=== PATIENT | female | born 1995 | race Caucasian/White ===

== ENCOUNTER → 2023-12-20 08:48 | Outpatient (CLI) | payer OTHER, SELFPAY ==
[2023-12-20 09:49] LABS: Add Manual Diff / Slide Review NO; Basophils Absolute Auto 0 /uL (0-100); Basophils Percent Auto 0.2 % (0-2); Eosinophils Absolute Auto 100 /uL (0-450); Eosinophils Percent Auto 1.8 % (2-4); Hematocrit 44.4 % (36-46); Hemoglobin 15.2 g/dL (12.0-16.0); Lymphocytes Absolute Auto 1600 /uL (1100-4500); Lymphocytes Percent Auto 29.4 % (25-40); Mean Corpuscular HGB Conc 34.3 % (30-36); Mean Corpuscular Hemoglobin 30.5 PG (26-34); Mean Corpuscular Volume 89.1 fL (80-100); Monocytes Absolute Auto 400 /uL (0-900); Monocytes Percent Auto 8.1 % (3-14); Neutrophils Absolute Auto 3300 /uL (1500-7000); Neutrophils Percent Auto 60.5 % (50-75); Platelet Count 258 X10^3/uL (150-400); Red Blood Cell Count 4.99 X10^6/uL (4.0-5.2); Red Cell Distribution Width 12.8 % (11.6-14.8); White Blood Cell Count 5.4 X10^3/uL (4.5-11.0)
[2023-12-20 10:12] LABS: Alanine Aminotransferase 49 IU/L (<35); Albumin 4.5 g/dL (3.5-5.0); Albumin Globulin Ratio 1.6 (1.0-2.8); Alkaline Phosphatase 64 U/L (38-126); Aspartate Aminotransferase 36 IU/L (14-36); BUN Creatinine Ratio 22.5 (6-22); Blood Urea Nitrogen 16 mg/dL (7-17); Calcium 9.1 mg/dL (8.4-10.2); Carbon Dioxide 26 mmol/L (22-32); Chloride 106 mmol/L (98-107); Estimated Glomerular Filt Rate > 60 mL/min (>60); Globulin 2.8 g/dL (1.7-4.1); Glucose 88 mg/dL (70-100); HEMOLYSIS < 15 (0-50); Potassium 4.5 mmol/L (3.4-5.1); Sodium 139 mmol/L (137-145); Total Protein 7.3 g/dL (6.3-8.2)
[2023-12-20 10:32] LABS: TSH w/ Reflex to FT4 2.25 uIU/mL (0.47-4.68)
== END ==
PROVIDERS: PCP Family Medicine; Referring Provider Family Medicine; Visit Provider Family Medicine
DX: Z31.430 Encounter of female for testing for genetic disease carrier status for procreative management (principal); Z30.09 Encounter for other general counseling and advice on contraception; E03.9 Hypothyroidism, unspecified
CPT/HCPCS: 36415; 80053; 84443; 85025

== ENCOUNTER → 2024-01-20 09:43 | Outpatient (CLI) | payer OTHER, SELFPAY ==
[2024-01-20 10:54] LABS: Appearance Urine UA CLEAR; Bilirubin Urine UA NEGATIVE (NEGATIVE); Color Urine UA YELLOW; Glucose Urine UA NEGATIVE (Negative); Ketones Urine UA NEGATIVE (NEGATIVE); Leukocyte Esterase Urine UA NEGATIVE (NEGATIVE); Nitrite Urine UA NEGATIVE (Negative); Occult Blood Urine UA NEGATIVE (Negative); Protein Urine UA NEGATIVE (Negative); Urobilinogen Urine UA 0.2 E.U./dL (0.2)
[2024-01-20 10:57] LABS: pH Urine UA 6.5 (4.5-8.0)
[2024-01-20 11:09] LABS: HEMOLYSIS < 15 (0-50); Iron 108 ug/dL (37-170)
[2024-01-20 11:11] LABS: Alanine Aminotransferase 40 IU/L (<35); Albumin 4.4 g/dL (3.5-5.0); Albumin Globulin Ratio 1.8 (1.0-2.8); Alkaline Phosphatase 64 U/L (38-126); Aspartate Aminotransferase 28 IU/L (14-36); BUN Creatinine Ratio 19.4 (6-22); Blood Urea Nitrogen 14 mg/dL (7-17); Calcium 9.2 mg/dL (8.4-10.2); Carbon Dioxide 27 mmol/L (22-32); Chloride 106 mmol/L (98-107); Estimated Glomerular Filt Rate > 60 mL/min (>60); Globulin 2.4 g/dL (1.7-4.1); Glucose 84 mg/dL (70-100); HEMOLYSIS < 15 (0-50); Potassium 4.7 mmol/L (3.4-5.1); Sodium 139 mmol/L (137-145); Total Protein 6.8 g/dL (6.3-8.2)
[2024-01-20 11:17] LABS: Bacteria Urine None Seen; Culture Indicated Urine Cult Not Indicated; RBC Urine None Seen (0-5/HPF); Squamous Epithelial Cell Urine None Seen (0-5/HPF); Urine Volume 10mL (spun); WBC Urine None Seen (0-5/HPF)
[2024-01-20 11:20] LABS: Percent Iron Saturation 30 % (15-50); Total Iron Binding Capacity 359 ug/dL (265-497); Transferrin 286 mg/dL (206-381)
[2024-01-20 11:46] LABS: Ferritin 31 ng/mL (6-137)
[2024-01-20 12:31] LABS: Hemoglobin A1C% w Est Avg Glu 4.9 % (4.0-6.0)
[2024-01-21 05:13] LABS: HBsAg Screen Negative (Negative); Hepatitis A Antibody IgM Negative (Negative); Hepatitis B Core Antibody IgM Negative (Negative); Hepatitis C Antibody Non Reactive (Non Reactive)
== END ==
PROVIDERS: PCP Family Medicine; Referring Provider Family Medicine; Visit Provider Family Medicine
DX: R35.0 Frequency of micturition (principal); R79.89 Other specified abnormal findings of blood chemistry; F31.74 Bipolar disorder, in full remission, most recent episode manic; E03.9 Hypothyroidism, unspecified
CPT/HCPCS: 36415; 80053; 80074; 81001; 82728; 83036; 83540; 83550

== ENCOUNTER → 2024-01-24 15:24 | Outpatient (CLI) | payer OTHER, SELFPAY ==
--- NOTE | 2024-01-24 15:26 | DI.US.S_ITS ---
PROCEDURE: US ABDOMEN COMPLETE INDICATIONS: ELEVATED LFT's/URINARY FREQUENCY TECHNIQUE: Real-time scanning was performed of the abdominal and retroperitoneal organs, with image documentation. COMPARISON: None. FINDINGS: Liver: Liver is normal in size and homogeneous in echotexture. Gallbladder: Normal. Biliary ducts: Intrahepatic bile ducts are non-dilated. Extrahepatic bile duct caliber measures 2.5 mm. Normal is 6-7 mm or less in diameter, or 10 mm or less post-cholecystectomy. Pancreas: Visualized portions of the pancreas are sonographically normal. Spleen: Spleen is normal in size and homogeneous in echotexture. Kidneys: Kidneys are normal in size and echotexture. Right kidney measures 10.8 cm long; left kidney measures 12.3 cm long. No hydronephrosis or nephrolithiasis. No solid masses. Aorta: Visualized aorta is normal in caliber at less than 3 cm. Iliacs: Proximal common iliac arteries are normal in caliber at less than 2.5 cm. IVC: Intrahepatic inferior vena cava is patent. Miscellaneous: No free abdominal fluid. IMPRESSION: No findings to explain the patient's elevated LFTs. Normal liver echogenicity. No gallbladder pathology. Dictated by: Prakash Moon M.D. on 01/24/2024 at 18:39 Approved by: Prakash Moon M.D. on 01/24/2024 at 18:40
== END ==
PROVIDERS: PCP Family Medicine; Referring Provider Family Medicine; Visit Provider Family Medicine
DX: R79.89 Other specified abnormal findings of blood chemistry (principal); R35.0 Frequency of micturition
CPT/HCPCS: 76700

== ENCOUNTER → 2024-04-13 09:10 | Outpatient (CLI) | payer OTHER, SELFPAY ==
[2024-04-13 10:48] LABS: Alanine Aminotransferase 56 IU/L (<35); Albumin 4.1 g/dL (3.5-5.0); Albumin Globulin Ratio 1.6 (1.0-2.8); Alkaline Phosphatase 69 U/L (38-126); Aspartate Aminotransferase 43 IU/L (14-36); BUN Creatinine Ratio 19.4 (6-22); Bilirubin Total 0.9 mg/dL (0.2-1.3); Blood Urea Nitrogen 14 mg/dL (7-17); Calcium 9.4 mg/dL (8.4-10.2); Carbon Dioxide 23 mmol/L (22-32); Chloride 106 mmol/L (98-107); Cholesterol 168 mg/dL (140-199); Estimated Glomerular Filt Rate > 60 mL/min (>60); Globulin 2.6 g/dL (1.7-4.1); Glucose 89 mg/dL (70-100); HDL Cholesterol 41 mg/dL (40-60); LDL Cholesterol Calculated 112 mg/dL (<100); Potassium 4.6 mmol/L (3.4-5.1); Sodium 135 mmol/L (137-145); Total Protein 6.7 g/dL (6.3-8.2); Triglycerides 75 mg/dL (35-150)
[2024-04-13 10:49] LABS: HEMOLYSIS < 15 (0-50)
[2024-04-13 11:06] LABS: TSH w/ Reflex to FT4 2.36 uIU/mL (0.47-4.68)
[2024-04-13 20:07] LABS: Cortisol AM (Before 10AM) 8.66 ug/dL (4.46-22.7)
[2024-04-17 17:08] LABS: Lipoprotein (a) 46.4 nmol/L (<75.0)
== END ==
PROVIDERS: PCP Family Medicine; Referring Provider Family Medicine; Visit Provider Family Medicine
DX: R79.89 Other specified abnormal findings of blood chemistry (principal); N93.9 Abnormal uterine and vaginal bleeding, unspecified; R63.5 Abnormal weight gain; Z83.438 Family history of other disorder of lipoprotein metabolism and other lipidemia
CPT/HCPCS: 36415; 80053; 80061; 82533; 83695; 84443

== ENCOUNTER → 2024-06-13 14:22 | Outpatient (CLI) | payer OTHER, SELFPAY ==
--- NOTE | 2024-06-13 14:23 | DI.US.S_ITS ---
PROCEDURE: US PELVIC COMPLETE INDICATIONS: Abnormal uterine and vaginal bleeding, unspecified TECHNIQUE: Real-time scanning was performed of the pelvic organs, with image documentation. Additional endovaginal scanning was necessary due to incomplete visualization of the adnexal and endometrial structures by transabdominal scanning. COMPARISON: None. FINDINGS: Uterus: Uterus is anteverted and normal in size at 7.3 x 2.9 x 4.1 cm. The myometrium is heterogeneous The endometrium measures 5 mm combined thickness. No gross endometrial mass or fluid is seen. Nabothian cysts and small echogenic foci are noted within vaginal canal. Ovaries: The right ovary measures 4.1 x 2.0 x 1.8 cm, with a calculated ovarian volume of 7.8 cc. The left ovary measures 2.4 x 1.4 x 2.9 cm, with a calculated ovarian volume of 5.2 cc. Simple appearing right ovarian cyst measures 2.1 x 1.7 x 1.9 cm in size. 1.1 x 1.2 x 1 cm echogenic nodule is noted in left ovary Less than 12 follicles can be seen in each ovary. No adnexal masses are seen. Other: No pathologic free abdominal or pelvic fluid. IMPRESSION: 1. No endometrial mass or fluid. No discrete uterine fibroids. 2. Small nabothian cysts and nonspecific echogenic foci are seen within endovaginal canal. [employer] correlation is recommended. 3. Simple cyst is seen in right ovary. 1.2 cm hyperechoic nodule is noted within left ovary and is of indeterminate significance. Sonographic follow-up in 4-6 weeks is recommended. We strive to produce accurate, complete, and clear reports of imaging services. To assist us in improving patient care, this report was composed using standard report templates and voice recognition software. Therefore, it may contain abnormal punctuation, insertions and/or omissions. Occasional wrong-word or sound-alike substitutions may occur. Though we review the report and make efforts to correct it, we do recommend that the report be read carefully in proper context to recognize any text inaccuracies. Dictated by: Benito Dorman M.D. on 06/13/2024 at 23:07 Approved by: Benito Dorman M.D. on 06/13/2024 at 23:10
== END ==
PROVIDERS: PCP Family Medicine; Referring Provider Family Medicine; Visit Provider Family Medicine
DX: N93.9 Abnormal uterine and vaginal bleeding, unspecified (principal); N88.8 Other specified noninflammatory disorders of cervix uteri; N83.291 Other ovarian cyst, right side; N83.9 Noninflammatory disorder of ovary, fallopian tube and broad ligament, unspecified
CPT/HCPCS: 76856

== ENCOUNTER → 2024-07-24 15:49 | Outpatient (CLI) | payer OTHER, SELFPAY ==
--- NOTE | 2024-07-24 15:50 | DI.US.S_ITS ---
PROCEDURE: US PELVIC COMPLETE INDICATIONS: FOLLOW UP OVARIAN CYST TECHNIQUE: Real-time scanning was performed of the pelvic organs, with image documentation. Additional endovaginal scanning was necessary due to incomplete visualization of the adnexal and endometrial structures by transabdominal scanning. COMPARISON: [facility], US, US PELVIC COMPLETE, 06/13/2024, 14:37. FINDINGS: Uterus: Uterus is anteverted and normal in size at 7.1 x 4.2 x 3.2 cm. The myometrium is heterogeneous. The endometrium measures 7 mm combined thickness. scar along the anterior margin. Ovaries: The right ovary measures 3.0 x 2.5 x 2.4 cm, with a calculated ovarian volume of 9 cc. The left ovary measures 2.5 x 1.9 x 1.4 cm, with a calculated ovarian volume of 3 cc. The ovaries have a normal sonographic appearance. Less than 12 follicles can be seen in each ovary. No adnexal masses are seen. Resolved hyperechoic left ovarian lesion. Right-sided corpus luteum. Other: No pathologic free abdominal or pelvic fluid. IMPRESSION: Resolved hyperechoic left ovarian lesion. We strive to produce accurate, complete, and clear reports of imaging services. To assist us in improving patient care, this report was composed using standard report templates and voice recognition software. Therefore, it may contain abnormal punctuation, insertions and/or omissions. Occasional wrong-word or sound-alike substitutions may occur. Though we review the report and make efforts to correct it, we do recommend that the report be read carefully in proper context to recognize any text inaccuracies. Dictated by: Prakash Moon M.D. on 07/25/2024 at 11:31 Approved by: Prakash Moon M.D. on 07/25/2024 at 11:40
== END ==
PROVIDERS: PCP Family Medicine; Referring Provider Family Medicine; Visit Provider Family Medicine
DX: N88.8 Other specified noninflammatory disorders of cervix uteri (principal)
CPT/HCPCS: 76830; 76856

== ENCOUNTER → 2024-09-26 16:02 | Outpatient (CLI) | payer OTHER, SELFPAY ==
--- NOTE | 2024-10-02 09:31 | DIET.CONS ---
Dietary Consultation Note Assessment: 29 y F referred for abnormal weight gain. Pt reports 30 lb weight gain from October 2021 to Jul 2023. Starting a year ago she started tracking calorie and created calorie deficit. Has not lost any weight since. Doesn't feel like herself since weight gain, notes it has affected her rowing as well. Has elevated ALT and AST, was told by GI to lose weight. Reports checking multiple labs with PCP for underlying medical causes and all being normal. There were no changes to her diet or exercise routine in the period of time she gained weight. Diet recall: Has various meal plans she cycles through: B-egg white, sourdough slice or fruit and protein smoothie L- grilled chicken and veggies 1/2 c quinoa or rice sometimes snack of estonian yogurt, no added sugars, depending on hunger D-chicken or fish, veg, 1/2 c carb Drinks only water 90-100 g protein At lunch and dinner has half her plate or more be veggies Estimated to be meeting fiber needs Normal daily BMs Regular menstruations Gets 7-8 hours sleep Doesn't feel at any point she is overly hungry during day, stays between 4-7 on hunger fullness scale, will have snack of yogurt as needed Activity: -2 days of 60 minute strength class -2 days of low impact activity (walking) 45 minutes -1-2 days rowing for 1.5 hr =300-390 minutes activity weekly Ht: 5 ft 10 in Wt: 178 lb BMI: 25.5 UBW: -30 lb Nutrition Diagnosis: No dx at this time Interventions: Discussed the following -Pt is very knowledgeable and has done much research and has multiple friends who are also dietitians -Broke down macronutrients from current dietary pattern, protein intake was 35-45% of calories -Discussed changing up types of physical activity to more enjoyable activities that also focus on strength and cardio -Discussed taking break from calorie counting and stress that comes from following strict nutrition pattern Goals: take a break from calorie counting, listen to the body and try different forms of physical activity that are more enjoyable for her but are still moderate+ intensity level Overall impressions: pt has healthy diet, normal labs except AST/ALT, and is physically active. Monitoring/Evaluations: pt would like to f/u in January Electronically Signed by: Andria Medrano 10/02/24 09:[address] [id number]
== END ==
PROVIDERS: PCP Family Medicine; Referring Provider Family Medicine
DX: R63.5 Abnormal weight gain (principal); Z71.3 Dietary counseling and surveillance; Z68.25 Body mass index [BMI] 25.0-25.9, adult
CPT/HCPCS: 97802

== ENCOUNTER → 2024-10-03 16:45 | Outpatient (CLI) | payer OTHER, SELFPAY ==
[2024-10-03 17:46] LABS: Influenza A - CEPHEID Flu A NEGATIVE (NEGATIVE); Influenza B - CEPHEID Flu B NEGATIVE (NEGATIVE); Respiratory Syncytial Virus Negative (Negative)
[2024-10-03 17:56] LABS: COVID-19 CEPHEID 4-PLEX PCR Negative (Negative)
== END ==
PROVIDERS: PCP Family Medicine; Visit Provider Nurse Practitioner Family
DX: R52 Pain, unspecified (principal); J02.9 Acute pharyngitis, unspecified
CPT/HCPCS: 0241U; 87070

== ENCOUNTER → 2024-11-15 08:16 | Outpatient (CLI) | payer OTHER, SELFPAY ==
[2024-11-15 09:04] LABS: Alanine Aminotransferase 52 IU/L (<35); Albumin 4.5 g/dL (3.5-5.0); Albumin Globulin Ratio 1.9 (1.0-2.8); Alkaline Phosphatase 75 U/L (38-126); Aspartate Aminotransferase 39 IU/L (14-36); BUN Creatinine Ratio 21.3 (6-22); Bilirubin Total 1.1 mg/dL (0.2-1.3); Blood Urea Nitrogen 16 mg/dL (7-17); Calcium 9.8 mg/dL (8.4-10.2); Carbon Dioxide 23 mmol/L (22-32); Chloride 103 mmol/L (98-107); Estimated Glomerular Filt Rate > 60 mL/min (>60); Globulin 2.4 g/dL (1.7-4.1); Glucose 93 mg/dL (70-99); HEMOLYSIS < 15 (0-50); Potassium 4.6 mmol/L (3.4-5.1); Sodium 136 mmol/L (137-145); Total Protein 6.9 g/dL (6.3-8.2)
[2024-11-16 04:08] LABS: Immunoglobulin G, Quantitative 852 mg/dL (586-1602)
[2024-11-17 12:08] LABS: Anti Mitochondrial ABY IGG <20.0 Units (0.0-20.0); Smooth Muscle Antibody 4 Units (0-19)
[2024-11-17 22:35] LABS: ANA Screen, IFA Positive (.)
== END ==
PROVIDERS: PCP Family Medicine; Referring Provider Family Medicine; Visit Provider Family Medicine
DX: R94.5 Abnormal results of liver function studies (principal)
CPT/HCPCS: 36415; 80053; 82784; 83516; 86015; 86038

== ENCOUNTER → 2025-03-26 16:33 | Outpatient (CLI) | payer OTHER, SELFPAY ==
[2025-03-29 18:36] LABS: Gest Age on Col Date 16.6 weeks (.); OSBR Risk 1IN 2155 (.)
[2025-04-01 12:21] LABS: PDF SEE SCANNED REPORTS
== END ==
PROVIDERS: PCP Family Medicine; Referring Provider Obstetrics & Gynecology; Visit Provider Obstetrics & Gynecology
DX: Z34.92 Encounter for supervision of normal pregnancy, unspecified, second trimester (principal); Z3A.16 16 weeks gestation of pregnancy
CPT/HCPCS: 82105

== ENCOUNTER → 2025-04-22 12:18 | Outpatient (CLI) | payer OTHER, SELFPAY ==
--- NOTE | 2025-04-22 13:06 | DI.US.S_ITS ---
PROCEDURE: US OB >= 14 WEEKS FETUS INDICATIONS: 20 weeks anatomy scan The calculations are made using the working GAYLE of 09/06/2025. TECHNIQUE: Real-time scanning was performed of the fetus, with image documentation and biometric measurements. Endovaginal scanning: No COMPARISON: None. FINDINGS: General: A single living intrauterine gestation is present. Presentation: Vertex. Placenta: Placental position is anterior , without previa. Amniotic fluid index: 14.0 cm, normal range is 5-24 cm. Single deepest vertical pocket is 5.6 cm. heart rate: 160 beats per minute. Maternal cervical canal: 3.6 cm long. Normal lower limit is 2.5 cm. biometrics: Biparietal diameter: 5.0 cm, 21 week 0 day Head circumference: 17.9 cm, 20 week 2 day Abdominal circumference: 16.3 cm, 21 week 3 day Femur length: 3.6 cm, 21 week 2 day Clinically estimated gestational age: 20 week 3 day Composite gestational age from present scan: 21 week 0 day Estimated weight and percentile: 410 g, 87% Anatomic survey: Neuro: Ventricles are non-dilated at less than 10 mm. Cisterna magna is normal at 3-11 mm. Cerebellum is normal in size and morphology. Nuchal skin fold: Normal at less than 6 mm between 14-21 weeks gestational age. Face: Nose and lips, facial profile are normal. Spine: No evidence for spina bifida. Heart: 4-chambered heart is present, with normal ventricular outflow tracts. Diaphragm: Diaphragm is intact. Stomach: Left-sided stomach is present. Kidneys: No hydronephrosis. Normal is less than 5 mm in 2nd trimester, less than 7 mm in 3rd trimester. Cord: 3-vessel cord has orthotopic insertion. Bladder: Normal in size. Extremities: All 4 extremities identified. IMPRESSION: Single live intrauterine consistent with 21 week 0 day gestation Approved by: Beto Lau M.D. on 04/22/2025 at 15:28
== END ==
LOC: US 12:19
PROVIDERS: PCP Family Medicine; Referring Provider Family Medicine; Visit Provider Obstetrics & Gynecology
DX: Z34.02 Encounter for supervision of normal first pregnancy, second trimester (principal); Z3A.20 20 weeks gestation of pregnancy
CPT/HCPCS: 76811

== ENCOUNTER → 2025-05-25 10:21 | Outpatient (CLI) | payer OTHER, SELFPAY ==
[2025-05-25 12:21] LABS: Hematocrit 37.6 % (36-46); Hemoglobin 13.2 g/dL (12.0-16.0)
[2025-05-25 12:55] LABS: GTT (PREG) 1 Hour PP 50gm Dose 97 mg/dL (76-139)
== END ==
PROVIDERS: PCP Family Medicine; Referring Provider Obstetrics & Gynecology; Visit Provider Obstetrics & Gynecology
DX: Z13.0 Encounter for screening for diseases of the blood and blood-forming organs and certain disorders involving the immune mechanism (principal); Z13.1 Encounter for screening for diabetes mellitus
CPT/HCPCS: 36415; 82950; 85014; 85018